=== PATIENT | male | born 1975 | race Caucasian/White ===

== ENCOUNTER 2016-12-31 08:19 | Observation (INO) | payer BC ==
[~2016-12-31] VITALS: Ht 190.5 cm; Wt 116.4 kg
[~2016-12-31 08:19] MED LIST: CYAN100T6 PO; IBUP-1050 PO; MULT-513 PO; PRED10TA PO; TRAM-10 PO
[2016-12-31] MEDS ORDERED: ONDANSETRON INJ 2 MG/ML 2 ML VIAL IV STA (09:18)
[2016-12-31] MEDS ORDERED: MoRPHine SULFATE 4 MG/ML 1 ML CARP\\VIAL IV STA ×2 (09:18→14:42)
[2016-12-31] MEDS ORDERED: DEXAMETHASONE SOD INJ 10 MG/ML VIAL IV STA (09:23)
[2016-12-31 09:44] LABS: BASO % 0.4 %; BASO ABS # 0.02 K/uL (0-0.2); COMPLETE YES; EOS % 3.1 %; HEMATOCRIT 44.6 % (42-52); IG% 0.2 %; LYMPH % 25.9 %; LYMPH ABS # 1.42 K/uL (1.2-3.4); MEAN CELL VOLUME 92.9 fL (80-100); MEAN CORPUSCULAR HEMOGLOBIN 31.9 pg (25-34); MEAN CORPUSCULAR HGB CONC 34.3 g/dl (32-36); MEAN PLATELET VOLUME 9.5 fL (7.4-10.4); MONO % 10.8 %; NEUT % 59.6 %; PLATELET COUNT 228 K/uL (130-400); WHITE BLOOD COUNT 5.48 K/uL (4.8-10.8)
[2016-12-31 10:02] LABS: BUN/CREATININE RATIO 17.6 (10-20); CALCIUM 9.1 mg/dl (8.5-10.1); CREATININE 0.87 mg/dl (0.60-1.40); POTASSIUM 4.1 mmol/L (3.5-5.1)
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
--- NOTE | 2016-12-31 11:26 | DIAGNOSTIC IMAGING REPORT ---
MRI OF THE LUMBAR SPINE WITHOUT IV CONTRAST CLINICAL HISTORY: Chronic low back pain. Leg weakness. COMPARISON STUDY: MRI of the lumbar spine dated 07/27/2016. TECHNIQUE: MRI of the lumbar spine is performed utilizing various T1 and T2-weighted sequences in the axial and sagittal planes. IV contrast was not administered for this examination. FINDINGS: Lumbar spine: Vertebral body height and alignment are maintained throughout the lumbar spine. No destructive bony lesion is seen. The transverse and spinous processes appear intact. There is no evidence of spondylolysis. Intervertebral discs: There is degenerative disc desiccation seen throughout the lumbar spine. Mild loss of height is noted at L4-L5. Spinal cord: The partially imaged spinal cord is normal in morphology and signal intensity. The conus medullaris terminates at the level of L1. The nerve roots of the cauda equina are normal in appearance. L1-L2: Unremarkable. L2-L3: There is a lateral disc bulge eccentric to the left. This may impinge on the exiting left L2 nerve root. The central canal and neural foramina are patent. L3-L4: The central canal and neural foramina are patent. Facet arthropathy is of no consequence. L4-L5: There is minimal posterior disc bulge eccentric to the left. The central canal and neural foramina are patent. There is mild bilateral subarticular stenosis. Mild facet arthropathy is of no consequence. L5-S1: The central canal and neural foramina are patent. Mild facet arthropathy is of no consequence. A small left-sided disc protrusion with annular fissure is again seen. There is minimal left-sided subarticular stenosis. This may abut the transiting left S1 nerve root. Sacrum: Partially visualized sacrum is normal in morphology and signal intensity. Soft tissues: The paraspinous soft tissues are within normal limits. Partially imaged retroperitoneal structures are grossly unremarkable, but incompletely assessed. IMPRESSION: 1. There is no large disc herniation or central canal stenosis. 2. Lumbosacral spondylosis and degenerative disc disease as above. See discussion for detailed level by level analysis. 3. No destructive bony process is identified. Dictated: 12/31/2016 11:15 AM Transcribed: 12/31/2016 11:25 AM Ema Electronically signed by: Frederick Marina M.D. 12/31/2016 11:26 AM Dictated Date/Time: 12/31/2016 11:15 AM
[2016-12-31] MEDS ORDERED: MoRPHine SULFATE 4 MG/ML 1 ML CARP\\VIAL IM STA (14:28)
[2016-12-31] MEDS ORDERED: ALUMINUM/MAGNESIUM/SIMETH (MAALOX MAX) 30 ML UDC PO PRN (15:45)
[2016-12-31] MEDS ORDERED: ACETAMINOPHEN 325 MG TAB PO PRN (15:45)
[2016-12-31] MEDS ORDERED: MoRPHine SULFATE 2 MG/ML CARP IV PRN (15:45)
[2016-12-31] MEDS ORDERED: ONDANSETRON INJ 2 MG/ML 2 ML VIAL IV PRN (15:45)
[2016-12-31] MEDS ORDERED: MAGNESIUM HYDROXIDE SUSP 30 ML UDC PO PRN (15:45)
[2016-12-31] MEDS ORDERED: MoRPHine SULFATE 4 MG/ML 1 ML CARP\\VIAL IV PRN (15:45)
[2016-12-31] MEDS ORDERED: POLYETHYLENE (MIRALAX) 17 GM PACK PO PRN (15:45)
[2016-12-31] MEDS ORDERED: IBUPROFEN 200 MG TAB PO PRN (15:45)
[2016-12-31] MEDS ORDERED: IV FLUIDS COMPLETED PRN ×2 (16:00)
--- NOTE | 2016-12-31 16:20 | History and Physical ---
History & Physical Date & Time of Service: Dec 31, 2016 at 16:05 Chief Complaint: Lower Back Pain Primary Care Physician: Maria Antonia Bird M.D. History of Present Illness Source: patient This is a 41 y/o male with no PMHx who presents to the ED c/o lumbar back pain x 1 week. Pt reports that 1 week ago he developed lumbar back pain that he describes as constant 6/10 "pressure" when laying still. The pain is aggravated with minimal movement and increases to 10/10 "sharp/shooting" pain that radiates into his groin. He denies pain radiating down his legs although when the pain is severe he has difficulty lifting his legs to walk. He denies recent injury but he does workout regularly and thinks he may have "tweaked" something. He has been taking Ibuprofen at home for his pain with minimal relief. He tried doing stretches at home but found it challenging due to the pain. Pt has a history of similar back pain in August 2016. He was seen by spine doctor (Evonne) who recommended stretches with possible need for injections. Pt completed the stretches which gave him complete relief of sxs and he didn't have any more problems until last week. Pt denies any incontinence , bilat LE weakness or saddle anesthesia. Pt denies fever/chills, diaphoresis, chest pain, SOB, abd pain, N/V, bowel or bladder issues, LE edema, calf pain, lightheadedness/dizziness. In the ED, vitals are stable. Labs are unremarkable. Lumbar MRI + multilevel DDD. Pt received Morphine and Decadron in the ED with good relief of pain. Pt will be admitted for further evaluation and treatment. 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) Multi-Drug Resistant Organisms History of MDRO: No Allergies Coded Allergies: Sulfa Antibiotics (Unverified Allergy, Severe, HIVES, 12/31/16) Uncoded Allergies: BACTRIM (Allergy, Unknown, 08/06/04) Home Medications Scheduled Cyanocobalamin (Vitamin B12 100 Mcg), 1 TAB PO DAILY Cyclobenzaprine HCl (Cyclobenzaprine HCl), 10 MG PO TID Multivitamins/Minerals (Mvi With Minerals), 1 TAB PO DAILY Scheduled PRN Ibuprofen (Advil), 800 MG PO TID PRN for Pain Review of Systems Constitutional: No chills, No fatigue, No fever, No sweats, No weakness Eyes: No worsening of vision Respiratory: No cough, No shortness of breath Cardiovascular: No chest pain, No claudication, No edema Abdomen: No constipation, No diarrhea, No nausea, No pain, No vomiting Musculoskeletal: + problem reported (back pain), No calf pain, No swelling Genitourinary - Male: No dysuria Neurologic: No weakness Psychiatric: No depression symptoms Endocrine: No fatigue Hematologic / Lymphatic: No abnormal bleeding/bruising Integumentary: No new/changing skin lesions Physical Exam Vital Signs Date Time Temp Pulse Resp B/P Pulse Ox O2 Delivery O2 Flow Rate FiO2 12/31/16 15:34 76 17 138/70 96 Room Air 12/31/16 14:33 79 18 142/74 95 12/31/16 13:30 70 17 134/73 96 Room Air 12/31/16 11:27 56 18 125/79 94 Room Air 12/31/16 10:10 53 17 124/81 98 Room Air 12/31/16 08:22 36.4 61 18 139/84 97 Room Air General Appearance: WD/WN, no apparent distress, + pertinent finding (Pt is sitting up comdortably in bed ) Head: normocephalic, atraumatic Eyes: normal inspection ENT: hearing grossly normal Neck: supple Respiratory/Chest: chest non-tender, lungs clear, normal breath sounds, no respiratory distress Cardiovascular: regular rate, rhythm, no edema, no murmur Abdomen/GI: normal bowel sounds, non tender, soft Back: normal inspection, + pertinent finding (no tenderness to palpation; + SLR and XSLR) Extremities/Musculoskelatal: normal inspection, no calf tenderness, no pedal edema Neurologic/Psych: alert, normal mood/affect, oriented x 3 Skin: normal color, warm/dry Diagnostics Laboratory Results Results Past 24 Hours Test 12/31/16 09:30 Range/Units White Blood Count 5.48 4.8-10.8 K/uL Red Blood Count 4.80 4.7-6.1 M/uL Hemoglobin 15.3 14.0-18.0 g/dL Hematocrit 44.6 42-52 % Mean Corpuscular Volume 92.9 80-100 fL Mean Corpuscular Hemoglobin 31.9 25-34 pg Mean Corpuscular Hemoglobin Concent 34.3 32-36 g/dl Platelet Count 228 130-400 K/uL Mean Platelet Volume 9.5 7.4-10.4 fL Neutrophils (%) (Auto) 59.6 % Lymphocytes (%) (Auto) 25.9 % Monocytes (%) (Auto) 10.8 % Eosinophils (%) (Auto) 3.1 % Basophils (%) (Auto) 0.4 % Neutrophils # (Auto) 3.27 1.4-6.5 K/uL Lymphocytes # (Auto) 1.42 1.2-3.4 K/uL Monocytes # (Auto) 0.59 0.11-0.59 K/uL Eosinophils # (Auto) 0.17 0-0.5 K/uL Basophils # (Auto) 0.02 0-0.2 K/uL RDW Standard Deviation 44.8 36.4-46.3 fL RDW Coefficient of Variation 13.1 11.5-14.5 % Immature Granulocyte % (Auto) 0.2 % Immature Granulocyte # (Auto) 0.01 0.00-0.02 K/uL Sodium Level 143 136-145 mmol/L Potassium Level 4.1 3.5-5.1 mmol/L Chloride Level 105 98-107 mmol/L Carbon Dioxide Level 32 21-32 mmol/L Anion Gap 6.0 3-11 mmol/L Blood Urea Nitrogen 15 7-18 mg/dl Creatinine 0.87 0.60-1.40 mg/dl Est Creatinine Clear Calc Drug Dose 152.2 ml/min Estimated GFR () 123.4 Estimated GFR (Non- 106.5 BUN/Creatinine Ratio 17.6 10-20 Random Glucose 91 70-99 mg/dl Calcium Level 9.1 8.5-10.1 mg/dl Diagnostic Radiology LUMBAR SPINE MRI IMPRESSION: 1. There is no large disc herniation or central canal stenosis. 2. Lumbosacral spondylosis and degenerative disc disease as above. See discussion for detailed level by level analysis. 3. No destructive bony process is identified. Impression Assessment and Plan LUMBAR BACK PAIN pt presents with worsening lower back pain; h/o similar back pain August 2016 which resolved with conservative treatment -admit observation status to med/surg -MRI IMPRESSION: 1. There is no large disc herniation or central canal stenosis. 2. Lumbosacral spondylosis and degenerative disc disease. See above for detailed level by level analysis. 3. No destructive bony process is identified. -cont morphine PRN pain -PT/OT -consult Dr. Douglass-pending input -monitor DVT PROPHYLAXIS -Low VTE risk -SCDs CODE STATUS -FULL CODE status DISPO -Observation status until further workup is complete. Pt seen in collaboration with Dr. Herman. Please see her addendum for further details. Thanks! ATTENDING NOTE : pt seen and examined, in agreement with above H& P by Gertrude SHEPHERD 41 yo healthy Male ,presented with acute onset of low back pain , localized to left side no recent trauma of fall MRI of lumber spine : -MRI IMPRESSION: 1. There is no large disc herniation or central canal stenosis. 2. Lumbosacral spondylosis and degenerative disc disease. See above for detailed level by level analysis. 3. No destructive bony process is identified. P/E: Gen : no sign of distress HEENT: sclera non icteric , PERRLA/EOMI HT: regular s1/s2 Lungs : CTA Abdomen : soft, non tender ext /musculoskeletal : point tenderness on low back -left side ; left sided + straight leg test neuro; no focal deficit A/P : Low back pain : due to lumber spine DJD no neurological compromise pain control PT/OT Ortho eval requested VTE Prophylaxis VTE Risk Assessment Done? Y/N: Yes Risk Level: Low
[2016-12-31 16:41] VITALS: BP 120/88; PULSE 66; TEMP 36.7; O2SAT 96; Ht 190.5 cm; Wt 116.4 kg
[2016-12-31] MEDS: CYCLOBENZAPRINE HCL 10 MG TAB PO SCH (20:22)
[2016-12-31] MEDS: KETOROLAC TROMETHAMINE 15 MG/ML VIAL IV PRN (22:14)
[2016-12-31 23:14] VITALS: BP 106/66; PULSE 86; TEMP 36.4; O2SAT 96
[2017-01-01] MEDS: KETOROLAC TROMETHAMINE 15 MG/ML VIAL IV PRN (04:57)
[2017-01-01 07:14] VITALS: BP 110/59; PULSE 59; TEMP 36.6; O2SAT 97
[2017-01-01] MEDS ORDERED: PANTOprazole SOD 40 MG TAB PO SCH (09:00)
[2017-01-01] MEDS ORDERED: CYANOCOBALAMIN 100 MCG TAB (VIT B-12) PO SCH (09:00)
[2017-01-01] MEDS ORDERED: DOCUSATE SODIUM 100 MG CAP PO SCH (09:00)
[2017-01-01] MEDS ORDERED: CEROVITE ADV FORMULA TAB PO SCH (09:00)
[2017-01-01] MEDS: CYCLOBENZAPRINE HCL 10 MG TAB PO SCH ×2 (09:20→14:05)
--- NOTE | 2017-01-01 11:00 | ORTHOPEDIC CONSULTATION ---
DATE OF CONSULTATION: 01/01/2017 DATE OF CONSULTATION: 01/01/2017. CHIEF COMPLAINT: Acute left-sided low back pain. HISTORY OF PRESENT ILLNESS: A 41-year-old male with a history of low back pain who reports that he was doing well, functioning his normal capacity at work and exercising when he twisted and felt a pop in his back. He had acute onset of left-sided low back pain. He was concerned he may have had disc herniation and presented to the ED for evaluation. He has no radiculopathy, no leg pain. No numbness, no neurologic complaints. An MRI was obtained that showed some loss of disc hydration, L4-L5 and L5-S1, mild loss of disc height with broad-based bulge at L5-S1 without neural compression. This is essentially unchanged from prior study. Really minimal degenerative findings noted. Due to his pain he was admitted for observation and pain control. He currently reports his pain is moderately improved. He has no neurologic complaints. He is ambulatory in the room and with physical therapy. PAST MEDICAL HISTORY: History orthopedic surgeries, no chronic medical issues. 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 ALLERGIES: HE HAS A SULFA ALLERGY. HOME MEDICATIONS: Vitamins and ibuprofen p.r.n. REVIEW OF SYSTEMS: Negative for fevers, chills, chest pain, numbness or fevers. PHYSICAL EXAMINATION: The patient is comfortable and answers questions appropriately, stands easily and ambulates with an upright posture and normal gait. He has some paraspinal tenderness in the left paraspinal region. He has reproduction of back pain with straight leg raise on the left. No radicular symptoms. Negative straight leg raise on the right. He has intact strength, sensation in lower extremities is symmetric. Normal DTRs. No clonus. He has palpable distal pulses. His MRI is reviewed as above. ASSESSMENT AND PLAN: The patient had acute episode of low back pain. He can be treated with symptomatic management. We will give him a dose of Decadron. From my standpoint, he can be discharged whenever he is comfortable. I recommend outpatient PT. He needs no further followup with spine surgery, also as needed basis.
--- NOTE | 2017-01-01 13:47 | Progress Note ---
Subjective Date of Service: Jan 01, 2017. Subjective Pt evaluation today including: conversation w/ patient, physical exam, lab review, review of studies, review of inpatient medication list Saw/examined the patient in room 382 Back pain is controlled with medications Ambulating; ROM improved Problem List Medical Problems: (1) Acute exacerbation of chronic low back pain Status: Acute (2) Bulging discs Status: Acute (3) Lumbar disc herniation with radiculopathy Status: Acute Review of Systems Constitutional: No chills, No fever Respiratory: No cough, No shortness of breath, No sputum Cardiac: No chest pain Abdomen: No diarrhea, No nausea, No pain, No vomiting Musculoskeletal: + joint pain (low back pain) Heme: No abnormal bleeding/bruising Medications Current Inpatient Medications Medications (Trade) Dose Ordered Sig/Jo Route Start Time Stop Time Status Last Admin Dose Admin Acetaminophen (Tylenol Tab) 650 mg Q4H PRN PO 12/31/16 15:45 01/30/17 15:44 Al Hydrox/Mg Hydrox/Simethicone (Maalox Max Susp) 15 ml Q4H PRN PO 12/31/16 15:45 01/30/17 15:44 Magnesium Hydroxide (Milk Of Magnesia Susp) 30 ml Q6H PRN PO 12/31/16 15:45 01/30/17 15:44 Polyethylene (Miralax Powder Packet) 17 gm DAILY PRN PO 12/31/16 15:45 01/30/17 15:44 Ondansetron HCl (Zofran Inj) 4 mg Q6H PRN IV 12/31/16 15:45 01/30/17 15:44 01/01/17 04:57 4 MG Cyclobenzaprine HCl (Flexeril Tab) 10 mg TID PO 12/31/16 21:00 01/30/17 20:59 01/01/17 09:20 10 MG Ibuprofen (Advil Tab) 800 mg TID PRN PO 12/31/16 15:45 01/30/17 15:44 01/01/17 10:29 800 MG Multivitamins/ Minerals (Multivitamin W/ Minerals Tab) 1 tab DAILY PO 01/01/17 09:00 01/31/17 08:59 01/01/17 09:20 1 TAB Cyanocobalamin (Vitamin B-12 Tab) 100 mcg DAILY PO 01/01/17 09:00 01/31/17 08:59 01/01/17 09:20 100 MCG Ketorolac Tromethamine (Toradol Inj) 15 mg Q6H PRN IV 12/31/16 15:45 01/05/17 15:44 01/01/17 04:57 15 MG Pantoprazole Sodium (Protonix Tab) 40 mg QAM PO 01/01/17 09:00 01/31/17 08:59 01/01/17 10:28 40 MG Morphine Sulfate (MoRPHine SULFATE INJ) 2 mg Q4 PRN IV 12/31/16 15:45 01/14/17 15:44 Morphine Sulfate (MoRPHine SULFATE INJ) 4 mg Q4 PRN IV 12/31/16 15:45 01/14/17 15:44 Docusate Sodium (coLACE CAP) 100 mg DAILY PO 01/01/17 09:00 01/31/17 08:59 01/01/17 09:20 100 MG Miscellaneous 1 ea 1 ea PRN PRN N/A 12/31/16 16:00 12/31/17 15:59 Dexamethasone Sodium Phosphate/ Syringe (Decadron Inj/ Syringe) 2 ml @ 1 mls/min Q8H IV 01/01/17 18:00 01/31/17 17:59 Objective Vital Signs Date Time Temp Pulse Resp B/P Pulse Ox O2 Delivery O2 Flow Rate FiO2 01/01/17 08:34 Room Air 01/01/17 07:14 36.6 59 14 110/59 97 Room Air 12/31/16 23:20 Room Air 12/31/16 23:14 36.4 86 20 106/66 96 Room Air 12/31/16 16:41 36.7 66 20 120/88 96 Room Air 12/31/16 16:23 78 15 132/67 96 12/31/16 15:34 76 17 138/70 96 Room Air 12/31/16 14:33 79 18 142/74 95 Physical Exam General Appearance: no apparent distress Respiratory/Chest: lungs clear, normal breath sounds, no respiratory distress, no accessory muscle use Cardiovascular: regular rate, rhythm, no edema, no murmur Abdomen: normal bowel sounds, non tender, soft Extremities: normal inspection, no pedal edema Assessment and Plan This is a 41 year old male who presented with low back pain Lumbar Back Pain Worsening low back pain MRI performed; showed a lumbosacral spondylosis and degenerative disc disease NSAIDs + IV decadron given PT/OT patient is feeling better will discharge with NSAIDs and outpatient f/u with PCP, may need outpatient physical therapy DVT ppx ambulation FULL CODE d/c home today
[2017-01-01] MEDS ORDERED: FLX10 PO (13:49)
--- NOTE | 2017-01-01 13:52 | Discharge Instructions ---
Discharge Instructions Admission Reason for Admission: Back Pain Discharge Discharge Diagnosis / Problem: Lumbosacral Spondylosis Discharge Goals Goal(s): Decrease discomfort, Improve function, Diagnostic testing, Therapeutic intervention Activity Recommendations Activity Limitations: per Instructions/Follow-up section . Instructions / Follow-Up Instructions / Follow-Up Please follow-up with Dr. Hines (covering for Dr. Bird) on January 08 @ 3:00PM * May need outpatient physical therapy if pain persists * Use ibuprofen for pain * You will be prescribed Flexeril for muscle spasms - use this only as needed - do not drive if you are using this medication * No need to follow-up with orthopedic surgery Current Hospital Diet Patient's current hospital diet: Regular Diet Discharge Diet Recommended Diet: Regular Diet Pending Studies Studies pending at discharge: no Medical Emergencies . Who to Call and When: Medical Emergencies: If at any time you feel your situation is an emergency, please call 911 immediately. . Non-Emergent Contact Non-Emergency issues call your: Primary Care Provider . . "Provider Documentation" section prepared by Cintia Parker. VTE Core Measure Inpt VTE Proph given/why not?: Treatment not indicated
--- NOTE | 2017-01-01 13:53 | Discharge Summary ---
Discharge Summary Admission Date: Dec 31, 2016 at 13:52 Discharge Date: Jan 01, 2017 Discharge Disposition: Home Principal Diagnosis: Lumbosacral Spondylosis Medication Reconciliation New Medications: Cyclobenzaprine HCl (Cyclobenzaprine HCl) 10 Mg Tab 10 MG PO TID for 10 Days, #30 TAB Continued Medications: Cyanocobalamin (Vitamin B12 100 Mcg) Unknown Strength Tab 1 TAB PO DAILY, TAB Ibuprofen (Advil) 200 Mg Tab 800 MG PO TID PRN for Pain, TAB Multivitamins/Minerals (Mvi With Minerals) Tab 1 TAB PO DAILY, TAB Admission Information HPI (per Admitting provider): This is a 41 y/o male with no PMHx who presents to the ED c/o lumbar back pain x 1 week. Pt reports that 1 week ago he developed lumbar back pain that he describes as constant 6/10 "pressure" when laying still. The pain is aggravated with minimal movement and increases to 10/10 "sharp/shooting" pain that radiates into his groin. He denies pain radiating down his legs although when the pain is severe he has difficulty lifting his legs to walk. He denies recent injury but he does workout regularly and thinks he may have "tweaked" something. He has been taking Ibuprofen at home for his pain with minimal relief. He tried doing stretches at home but found it challenging due to the pain. Pt has a history of similar back pain in August 2016. He was seen by spine doctor (Evonne) who recommended stretches with possible need for injections. Pt completed the stretches which gave him complete relief of sxs and he didn't have any more problems until last week. Pt denies any incontinence , bilat LE weakness or saddle anesthesia. Pt denies fever/chills, diaphoresis, chest pain, SOB, abd pain, N/V, bowel or bladder issues, LE edema, calf pain, lightheadedness/dizziness. In the ED, vitals are stable. Labs are unremarkable. Lumbar MRI + multilevel DDD. Pt received Morphine and Decadron in the ED with good relief of pain. Pt will be admitted for further evaluation and treatment. Physical Exam (per Admitting): General Appearance: WD/WN, no apparent distress, + pertinent finding (Pt is sitting up comdortably in bed ) Head: normocephalic, atraumatic Eyes: normal inspection ENT: hearing grossly normal Neck: supple Respiratory/Chest: chest non-tender, lungs clear, normal breath sounds, no respiratory distress Cardiovascular: regular rate, rhythm, no edema, no murmur Abdomen/GI: normal bowel sounds, non tender, soft Back: normal inspection, + pertinent finding (no tenderness to palpation; + SLR and XSLR) Extremities/Musculoskelatal: normal inspection, no calf tenderness, no pedal edema Neurologic/Psych: alert, normal mood/affect, oriented x 3 Skin: normal color, warm/dry Hospital Course This is a 41 year old male who presented with low back pain Lumbar Back Pain Worsening low back pain MRI performed; showed a lumbosacral spondylosis and degenerative disc disease NSAIDs + IV decadron given PT/OT patient is feeling better will discharge with NSAIDs and outpatient f/u with PCP, may need outpatient physical therapy DVT ppx ambulation FULL CODE d/c home today Total time spent on discharge = 20 minutes This includes examination of the patient, discharge planning, medication reconciliation, and communication with other providers. Discharge Instructions Please follow-up with Dr. Hines (covering for Dr. Bird) on January 08 @ 3:00PM * May need outpatient physical therapy if pain persists * Use ibuprofen for pain * You will be prescribed Flexeril for muscle spasms - use this only as needed - do not drive if you are using this medication * No need to follow-up with orthopedic surgery
[2017-01-01 13:57] VITALS: BP 110/59; PULSE 59; TEMP 36.6; O2SAT 97
[2017-01-01] MEDS ORDERED: DEXAMETHASONE INJ 8 MG in SYRINGE 0 ML IV SCH (18:00)
[2017-06-13] MEDS ORDERED: GABA-113 PO (09:41)
[2017-06-19] MEDS ORDERED: POTA10CA28 PO (14:06)
[2017-06-19] MEDS ORDERED: GLUC1CAP35 PO (14:06)
[2017-06-19] MEDS ORDERED: MULT-106 PO (14:06)
== END 2017-01-01 14:32 | disposition home or self-care (01) ==
LOC: ENRESERVTM → ENRESERVDT → C.EDB 08:20 → C.MSN 13:52
PROVIDERS: ADMIT Hospitalist; ATTEND Family Medicine
DX: M47.817 Spondylosis without myelopathy or radiculopathy, lumbosacral region (principal); Z87.891 Personal history of nicotine dependence; Z88.2 Allergy status to sulfonamides

== ENCOUNTER 2017-06-11 09:17 | Observation (INO) | payer BC ==
[~2017-06-11] VITALS: Ht 193 cm; Wt 113.6 kg
[~2017-06-11 09:17] MED LIST changes: +FLX10 PO; -PRED10TA PO; -TRAM-10 PO
[2017-06-11] MEDS ORDERED: CYCL10TA6 PO (09:45)
[2017-06-11] MEDS ORDERED: HYDROmorphone INJ 1 MG/ML SYR IV STA ×2 (10:25→12:43)
[2017-06-11] MEDS ORDERED: SODIUM CHLORIDE 0.9% 1000ML 1,000 ML IV STA (10:26)
[2017-06-11] MEDS ORDERED: ONDANSETRON INJ 2 MG/ML 2 ML VIAL IV STA (10:26)
[2017-06-11] MEDS ORDERED: KETOROLAC TROMETHAMINE 30 MG/ML VIAL IV STA (10:49)
[2017-06-11 11:20] LABS: BASO % 0.3 %; BASO ABS # 0.02 K/uL (0-0.2); COMPLETE YES; EOS % 1.7 %; HEMATOCRIT 44.1 % (42-52); IG% 0.2 %; LYMPH % 25.6 %; MEAN CELL VOLUME 91.9 fL (80-100); MEAN CORPUSCULAR HEMOGLOBIN 31.3 pg (25-34); MEAN PLATELET VOLUME 9.4 fL (7.4-10.4); MONO % 8.9 %; NEUT % 63.3 %; PLATELET COUNT 215 K/uL (130-400); WHITE BLOOD COUNT 6.64 K/uL (4.8-10.8)
[2017-06-11 11:39] LABS: BUN/CREATININE RATIO 14.8 (10-20); CALCIUM 9.4 mg/dl (8.5-10.1); CREATININE 0.84 mg/dl (0.60-1.40)
--- NOTE | 2017-06-11 11:45 | EMERGENCY ROOM VISIT NOTE ---
History First contact with patient: 10:02 Chief Complaint: BACK PAIN Stated Complaint: BULGING DISC IN BACK-DOCTOR TERRYFERDARRIAN-VIRIDIANA History of Present Illness The patient is a 41 year old male who presents to the Emergency Room with complaints of low back pain. The patient states he has had back pain since December. He had an MRI at that time which showed a bulging disc. He states that he was doing much better until Father's Day weekend. He had been lifting bags of mulch. He states that his pain has progressively worsened since then. He states that last night his pain was unbearable. He rates his discomfort an 8 /10. He states he is having difficulty urinating but denies loss of bowel or bladder control. He reports pain and tingling down the left leg that radiates to his ankle. He denies any abdominal pain, nausea or vomiting. The patient was seen at Dr. Lau's Office this morning. He was referred to the emergency department due to his significant pain. Review of Systems A 10 system review of systems was completed with positives and pertinent negatives listed in the HPI. Past Medical/Surgical History Medical Problems: (1) Back pain (2) disc herniation (3) Lumbar disc herniation Surgical Problems: (1) H/O vasectomy (2) S/P ACL repair (3) S/P left knee arthroscopy (4) S/P right knee arthroscopy Social History Smoking Status: Never Smoker Alcohol Use: occasionally Drug Use: none Marital Status: in relationship Occupation Status: employed Current/Historical Medications Scheduled Cyanocobalamin (Vitamin B12 100 Mcg), 1 TAB PO DAILY Cyclobenzaprine Hcl (Flexeril), 10 MG PO TID Multivitamins/Minerals (Mvi With Minerals), 1 TAB PO DAILY Scheduled PRN Ibuprofen (Advil), 800 MG PO TID PRN for Pain Allergies Coded Allergies: Sulfa Antibiotics (Unverified Allergy, Severe, HIVES, 06/11/17) Sulfamethoxazole w/Trimethoprim (Unverified Allergy, Severe, HIVES, ) Physical Exam Vital Signs Date Time Temp Pulse Resp B/P (MAP) Pulse Ox O2 Delivery O2 Flow Rate FiO2 06/11/17 14:38 61 16 125/88 98 Room Air 06/11/17 12:22 52 16 131/93 92 Room Air 06/11/17 10:36 56 20 135/87 96 Room Air 06/11/17 09:20 36.6 103 20 141/76 96 Room Air Physical Exam VITALS: Vitals are noted on the nurse's note and reviewed by myself. Vital signs stable. GENERAL: This is a 41-year-old male, who appears to be in pain, nondiaphoretic, well-developed well-nourished. SKIN: The skin was without rashes, erythema, edema, or bruising. There is no tenting of the skin. Capillary reflex less than 2 seconds. HEAD: Normocephalic atraumatic. EARS: The external ears are normal in appearance. EYES: Pupils equal round and reactive to light and accommodation. Conjunctivae without injection, sclerae without icterus. Extraocular movements intact. NOSE: Patent, turbinates without inflammation or discharge. MOUTH: Mucous membranes moist. Tonsils are not enlarged. Pharynx without erythema or exudate. Uvula midline. Airway patent. Tongue does not deviate. NECK: Supple without nuchal rigidity. No lymphadenopathy. No thyromegaly. Cervical spine is nontender. No JVD. HEART: Regular rate and rhythm without murmurs gallops or rubs. LUNGS: Clear to auscultation bilaterally without wheezes, rales or rhonchi. No retractions or accessory muscle use. ABDOMEN: Positive bowel sounds x 4. Soft, nontender, without masses or organomegaly. MUSCULOSKELETAL: No muscle atrophy, erythema, or edema noted. Full range of motion in all extremities but significant back pain with movement of the legs. No tenderness to palpation. Positive straight leg raise. Strength is 4/5 which may be secondary to pain. NEURO: Patient was alert and oriented to person place and time. Normal sensation to light and sharp touch. Deep tendon reflexes 2+ throughout. No focal neurological deficits. Medical Decision & Procedures ER Provider Diagnostic Interpretation: MRI OF THE LUMBAR SPINE WITHOUT IV CONTRAST CLINICAL HISTORY: Chronic low back pain. Left lower extremity radiculopathy. COMPARISON STUDY: MRI of the lumbar spine dated 12/31/2016. TECHNIQUE: MRI of the lumbar spine is performed utilizing various T1 and T2-weighted sequences in the axial and sagittal planes. IV contrast was not administered for this examination. FINDINGS: Lumbar spine: Vertebral body height and alignment are maintained throughout the lumbar spine. No destructive bony lesion is seen. The transverse and spinous processes appear intact. There is no evidence of spondylolysis. Tiny anterior osteophytes are seen in the lower lumbar region. Intervertebral discs: There is degenerative disc desiccation seen throughout the lumbar spine. Mild loss of height is noted at L4-L5 and L5-S1. Spinal cord: The partially imaged spinal cord is normal in morphology and signal intensity. The conus medullaris terminates at the level of L1. The nerve roots of the cauda equina are normal in appearance. L1-L2: Unremarkable. L2-L3: There is a lateral disc bulge eccentric to the left. This may impinge on the exiting left L2 nerve root. The central canal and neural foramina are patent. L3-L4: The central canal and neural foramina are patent. Facet arthropathy is of no consequence. L4-L5: There is minimal posterior disc bulge eccentric to the left. The central canal and neural foramina are patent. There is mild bilateral subarticular stenosis. Mild facet arthropathy is of no consequence. The disc bulge may abut the exiting right L4 nerve root. L5-S1: There is a left lateral disc herniation which is increased from 12/31/2016. This causes left-sided subarticular stenosis, and impinges on the transiting left-sided sacral nerve roots. This is best seen on axial image #27. The central canal is patent. Mild facet arthropathy is of no consequence. Sacrum: Partially visualized sacrum is normal in morphology and signal intensity. Soft tissues: The paraspinous soft tissues are within normal limits. Partially imaged retroperitoneal structures are grossly unremarkable, but incompletely assessed. The bladder is markedly distended. IMPRESSION: 1. There is a lateral disc herniation at L5-S1 eccentric to the left. This causes subarticular stenosis and impinges on the transiting left-sided sacral nerve roots. This has increased from 12/31/2016. 2. Lumbosacral spondylosis and degenerative disc disease at additional levels as above. See discussion for detailed level by level analysis. 3. No destructive bony process is identified. 4. The bladder is distended. Laboratory Results 06/11/17 10:48 Red Blood Count 4.80, Mean Corpuscular Volume 91.9, Mean Corpuscular Hemoglobin 31.3, Mean Corpuscular Hemoglobin Concent 34.0, Mean Platelet Volume 9.4, Neutrophils (%) (Auto) 63.3, Lymphocytes (%) (Auto) 25.6, Monocytes (%) (Auto) 8.9, Eosinophils (%) (Auto) 1.7, Basophils (%) (Auto) 0.3, Neutrophils # (Auto) 4.21, Lymphocytes # (Auto) 1.70, Monocytes # (Auto) 0.59, Eosinophils # (Auto) 0.11, Basophils # (Auto) 0.02 06/11/17 10:48 Test 06/11/17 10:48 06/11/17 15:05 White Blood Count 6.64 K/uL (4.8-10.8) Red Blood Count 4.80 M/uL (4.7-6.1) Hemoglobin 15.0 g/dL (14.0-18.0) Hematocrit 44.1 % (42-52) Mean Corpuscular Volume 91.9 fL (80-100) Mean Corpuscular Hemoglobin 31.3 pg (25-34) Mean Corpuscular Hemoglobin Concent 34.0 g/dl (32-36) Platelet Count 215 K/uL (130-400) Mean Platelet Volume 9.4 fL (7.4-10.4) Neutrophils (%) (Auto) 63.3 % Lymphocytes (%) (Auto) 25.6 % Monocytes (%) (Auto) 8.9 % Eosinophils (%) (Auto) 1.7 % Basophils (%) (Auto) 0.3 % Neutrophils # (Auto) 4.21 K/uL (1.4-6.5) Lymphocytes # (Auto) 1.70 K/uL (1.2-3.4) Monocytes # (Auto) 0.59 K/uL (0.11-0.59) Eosinophils # (Auto) 0.11 K/uL (0-0.5) Basophils # (Auto) 0.02 K/uL (0-0.2) RDW Standard Deviation 44.3 fL (36.4-46.3) RDW Coefficient of Variation 13.1 % (11.5-14.5) Immature Granulocyte % (Auto) 0.2 % Immature Granulocyte # (Auto) 0.01 K/uL (0.00-0.02) Anion Gap 6.0 mmol/L (3-11) Est Creatinine Clear Calc Drug Dose 155.8 ml/min Estimated GFR () 125.2 Estimated GFR (Non- 108.0 BUN/Creatinine Ratio 14.8 (10-20) Calcium Level 9.4 mg/dl (8.5-10.1) Total Bilirubin 0.3 mg/dl (0.2-1) Aspartate Amino Transf (AST/SGOT) 16 U/L (15-37) Alanine Aminotransferase (ALT/SGPT) 24 U/L (12-78) Alkaline Phosphatase 55 U/L (45-117) Total Protein 7.3 gm/dl (6.4-8.2) Albumin 3.6 gm/dl (3.4-5.0) Globulin 3.7 gm/dl (2.5-4.0) Albumin/Globulin Ratio 1.0 (0.9-2) Urine Color YELLOW Urine Appearance CLEAR (CLEAR) Urine pH 6.5 (4.5-7.5) Urine Specific [place] 1.016 (1.000-1.030) Urine Protein NEG (NEG) Urine Glucose (UA) NEG (NEG) Urine Ketones NEG (NEG) Urine Occult Blood NEG (NEG) Urine Nitrite NEG (NEG) Urine Bilirubin NEG (NEG) Urine Urobilinogen NEG (NEG) Urine Leukocyte Esterase NEG (NEG) Medications Administered Medications (Trade) Dose Ordered Sig/Jo Route Start Time Stop Time Status Last Admin Dose Admin Hydromorphone HCl (Dilaudid Inj) 1 mg NOW STAT IV 06/11/17 10:25 06/11/17 10:26 DC 06/11/17 10:33 1 MG Ondansetron HCl (Zofran Inj) 4 mg NOW STAT IV 06/11/17 10:26 06/11/17 10:27 DC 06/11/17 10:33 4 MG Sodium Chloride 1,000 ml @ 999 mls/hr Q1H1M STAT IV 06/11/17 10:26 06/11/17 11:26 DC 06/11/17 10:33 999 MLS/HR Ketorolac Tromethamine (Toradol Inj) 30 mg NOW STAT IV 06/11/17 10:49 06/11/17 10:51 DC 06/11/17 11:16 30 MG Hydromorphone HCl (Dilaudid Inj) 1 mg NOW STAT IV 06/11/17 12:43 06/11/17 12:44 DC 06/11/17 13:12 1 MG ED Course The patient was seen and examined. Previous visits were reviewed. The patient does not have a fever or leukocytosis. He does not have any significant electrolyte abnormality. Urinalysis is negative. MRI was obtained as above and reveals L5-S1 disc herniation The patient was initially given 1 mg IV Dilaudid with good improvement in his pain His pain began to come back and he was given additional 1 mg IV Dilaudid The patient presented to the emergency department in severe discomfort. The patient was initially laying in a prone position and was unable to roll onto his back because of the severe pain. The patient has had similar exacerbations twice in the past. He states each time is worse. He appears to have a disc herniation. He does not have any signs or symptoms of neurologic deficit. The patient is still having discomfort. I discussed the case with Dr. Lau. I had a lengthy discussion with the patient regarding his options of discharge home and follow-up in the office or possibly admission for further evaluation, management and possible injection tomorrow. The patient did not feel that he could go home. Dr. Lau was contacted again evaluate the patient and admit him. The case was discussed with Dr. petersen who agrees with the assessment and treatment plan Medical Decision DIFFERENTIAL DIAGNOSIS: Lumbar strain, degenerative disc disease, spondylolisthesis, herniated disc, spinal stenosis, osteoporosis, fracture, cauda equina syndrome, neoplasm, infection, inflammatory arthritis, among others. Impression Primary Impression: Lumbar disc herniation Additional Impression: Intractable low back pain Departure Information Dispostion Admitted as an inpatient Referrals Maria Antonia Bird M.D. (PCP) Patient Instructions My [facility] Problem Qualifiers
--- NOTE | 2017-06-11 14:15 | DIAGNOSTIC IMAGING REPORT ---
MRI OF THE LUMBAR SPINE WITHOUT IV CONTRAST CLINICAL HISTORY: Chronic low back pain. Left lower extremity radiculopathy. COMPARISON STUDY: MRI of the lumbar spine dated 12/31/2016. TECHNIQUE: MRI of the lumbar spine is performed utilizing various T1 and T2-weighted sequences in the axial and sagittal planes. IV contrast was not administered for this examination. FINDINGS: Lumbar spine: Vertebral body height and alignment are maintained throughout the lumbar spine. No destructive bony lesion is seen. The transverse and spinous processes appear intact. There is no evidence of spondylolysis. Tiny anterior osteophytes are seen in the lower lumbar region. Intervertebral discs: There is degenerative disc desiccation seen throughout the lumbar spine. Mild loss of height is noted at L4-L5 and L5-S1. Spinal cord: The partially imaged spinal cord is normal in morphology and signal intensity. The conus medullaris terminates at the level of L1. The nerve roots of the cauda equina are normal in appearance. L1-L2: Unremarkable. L2-L3: There is a lateral disc bulge eccentric to the left. This may impinge on the exiting left L2 nerve root. The central canal and neural foramina are patent. L3-L4: The central canal and neural foramina are patent. Facet arthropathy is of no consequence. L4-L5: There is minimal posterior disc bulge eccentric to the left. The central canal and neural foramina are patent. There is mild bilateral subarticular stenosis. Mild facet arthropathy is of no consequence. The disc bulge may abut the exiting right L4 nerve root. L5-S1: There is a left lateral disc herniation which is increased from 12/31/2016. This causes left-sided subarticular stenosis, and impinges on the transiting left-sided sacral nerve roots. This is best seen on axial image #27. The central canal is patent. Mild facet arthropathy is of no consequence. Sacrum: Partially visualized sacrum is normal in morphology and signal intensity. Soft tissues: The paraspinous soft tissues are within normal limits. Partially imaged retroperitoneal structures are grossly unremarkable, but incompletely assessed. The bladder is markedly distended. IMPRESSION: 1. There is a lateral disc herniation at L5-S1 eccentric to the left. This causes subarticular stenosis and impinges on the transiting left-sided sacral nerve roots. This has increased from 12/31/2016. 2. Lumbosacral spondylosis and degenerative disc disease at additional levels as above. See discussion for detailed level by level analysis. 3. No destructive bony process is identified. 4. The bladder is distended. Electronically signed by: Frederick Marina M.D. 06/11/2017 2:13 PM Dictated Date/Time: 06/11/2017 2:08 PM
[2017-06-11] MEDS ORDERED: ONDANSETRON INJ 2 MG/ML 2 ML VIAL IV PRN (15:00)
[2017-06-11] MEDS ORDERED: HYDROCODONE/ACETAMOPHEN 5/325MG TAB PO PRN (15:00)
[2017-06-11] MEDS ORDERED: ACETAMINOPHEN 325 MG TAB PO PRN (15:00)
[2017-06-11] MEDS ORDERED: LORAZEPAM 1 MG TAB PO PRN (15:00)
[2017-06-11 15:23] LABS: URINE APPEARANCE CLEAR (CLEAR); URINE BILIRUBIN NEG (NEG); URINE COLOR YELLOW; URINE NITRITE NEG (NEG); URINE PH 6.5 (4.5-7.5); URINE SPECIFIC GRAVITY 1.016 (1.000-1.030); UROBILINOGEN NEG (NEG); ZZUR CULT IF INDIC CLEAN CATCH NO
[2017-06-11 15:25] LABS: MANUAL MICROSCOPIC REQUIRED? NO; REVIEW REQ? NO
[2017-06-11 16:10] VITALS: BP 128/87; PULSE 49; TEMP 36.3; O2SAT 99; Ht 193 cm; Wt 113.6 kg
[2017-06-11] MEDS ORDERED: IV FLUIDS COMPLETED PRN (16:15)
--- NOTE | 2017-06-11 16:47 | History and Physical ---
History & Physical Date Jun 11, 2017. Chief Complaint back and left lower extremity pain History of Present Illness The patient is a 41 year old male with complaints of back and lower extremity pain Past Medical/Surgical History Medical Problems: (1) Back pain (2) disc herniation (3) Lumbar disc herniation Surgical Problems: (1) H/O vasectomy (2) S/P ACL repair (3) S/P left knee arthroscopy (4) S/P right knee arthroscopy Additional History Hepatic Disease: No Endocrine Disorder: No Kidney Disease: No Hypertension: No Heart Disease: No Bleeding Tendencies: No Infectious Diseases: No Allergies Coded Allergies: Sulfa Antibiotics (Unverified Allergy, Severe, HIVES, 06/11/17) Sulfamethoxazole w/Trimethoprim (Unverified Allergy, Severe, HIVES, ) Home Medications Scheduled Cyanocobalamin (Vitamin B12 100 Mcg), 1 TAB PO DAILY Cyclobenzaprine Hcl (Flexeril), 10 MG PO TID Multivitamins/Minerals (Mvi With Minerals), 1 TAB PO DAILY Scheduled PRN Ibuprofen (Advil), 800 MG PO TID PRN for Pain Physical Examination Skin: warm/dry, no rash Eyes: normal inspection, EOMI, sclerae normal ENT: normal ENT inspection Head: normocephalic, atraumatic Neck: supple, no adenopathy Respiratory/Chest: lungs clear, no respiratory distress Cardiovascular: regular rate, rhythm, no murmur Abdomen / GI: normal bowel sounds, non tender Back: + pertinent finding (back pain and spasm with loss of motion) Diagnosis disc herniation L5-S1 left ASA Classification: ASA Class II Plan of Treatment Admit to me ( Judi). iv and po meds ordered. Pain management consulted with hanna for injection L5-S1. Surgery in the future if not controlled by pain management
[2017-06-11] MEDS: OXYCODONE/ACETAMINOPHEN 5-325 TAB PO PRN ×2 (16:58→22:54)
[2017-06-11] MEDS: LACTATED RINGER'S 1000ML 1,000 ML IV SCH (16:59)
[2017-06-11] MEDS: DEXAMETHASONE INJ 8 MG in SYRINGE 0 ML IV SCH (18:32)
[2017-06-11] MEDS: KETOROLAC TROMETHAMINE 30 MG/ML VIAL IV PRN (20:49)
[2017-06-11] MEDS: DOCUSATE SODIUM 100 MG CAP PO SCH (20:49)
[2017-06-11] MEDS: GABAPENTIN 300 MG CAP PO SCH (20:49)
[2017-06-11 22:09] VITALS: BP 135/83; PULSE 59; TEMP 36.4; O2SAT 95
[2017-06-11 23:28] VITALS: BP 129/84; PULSE 62; TEMP 36.5; O2SAT 95
[2017-06-12] MEDS: DEXAMETHASONE INJ 8 MG in SYRINGE 0 ML IV SCH ×3 (00:22→12:08)
[2017-06-12] MEDS: LACTATED RINGER'S 1000ML 1,000 ML IV SCH (04:46)
[2017-06-12] MEDS: OXYCODONE/ACETAMINOPHEN 5-325 TAB PO PRN ×2 (04:55→12:08)
[2017-06-12] MEDS: KETOROLAC TROMETHAMINE 30 MG/ML VIAL IV PRN ×2 (06:41→13:02)
[2017-06-12 07:00] VITALS: BP 127/79; PULSE 74; TEMP 36.5; O2SAT 94
[2017-06-12 07:39] VITALS: BP 120/78; PULSE 82; TEMP 37.4; O2SAT 96
--- NOTE | 2017-06-12 08:07 | Progress Note ---
Subjective Date of Service: Jun 12, 2017. Subjective Pt evaluation today including: conversation w/ patient, chart review, conversation w/ change consultant Voiding: no voiding problems Patient improved this morning and will use the bathroom pain markedly decreased Problem List Medical Problems: (1) Acute exacerbation of chronic low back pain Status: Acute (2) Bulging discs Status: Acute (3) Intractable low back pain Status: Acute (4) Lumbar disc herniation with radiculopathy Status: Acute Review of Systems Musculoskeletal: + see HPI Neurologic: + see HPI All Other Systems: Reviewed and Negative (patient was admitted to my service on June 11. We use assortment of medications on him he is improving dramatically and stable.Pain management team has seen and evaluated the patient will try to get him set up for epidural steroid injection. The hospital or at their facility tomorrow 13 of June. I anticipate his discharge home later today) Objective Vital Signs Date Time Temp Pulse Resp B/P (MAP) Pulse Ox O2 Delivery O2 Flow Rate FiO2 06/12/17 07:39 37.4 82 18 120/78 (92) 96 Room Air 06/12/17 07:00 36.5 74 15 127/79 (95) 94 Room Air 06/11/17 23:30 Room Air 06/11/17 23:28 36.5 62 15 129/84 (99) 95 Room Air 06/11/17 22:09 36.4 59 18 135/83 (100) 95 Room Air 06/11/17 16:12 55 110/76 99 06/11/17 16:10 Room Air 06/11/17 16:10 Room Air 06/11/17 16:10 36.3 49 16 128/87 (101) 99 Room Air 06/11/17 14:38 61 16 125/88 98 Room Air 06/11/17 12:22 52 16 131/93 92 Room Air 06/11/17 10:36 56 20 135/87 96 Room Air 06/11/17 09:20 36.6 103 20 141/76 96 Room Air Laboratory Results Last 24 Hours Test 06/11/17 10:48 06/11/17 15:05 White Blood Count 6.64 K/uL Red Blood Count 4.80 M/uL Hemoglobin 15.0 g/dL Hematocrit 44.1 % Mean Corpuscular Volume 91.9 fL Mean Corpuscular Hemoglobin 31.3 pg Mean Corpuscular Hemoglobin Concent 34.0 g/dl Platelet Count 215 K/uL Mean Platelet Volume 9.4 fL Neutrophils (%) (Auto) 63.3 % Lymphocytes (%) (Auto) 25.6 % Monocytes (%) (Auto) 8.9 % Eosinophils (%) (Auto) 1.7 % Basophils (%) (Auto) 0.3 % Neutrophils # (Auto) 4.21 K/uL Lymphocytes # (Auto) 1.70 K/uL Monocytes # (Auto) 0.59 K/uL Eosinophils # (Auto) 0.11 K/uL Basophils # (Auto) 0.02 K/uL RDW Standard Deviation 44.3 fL RDW Coefficient of Variation 13.1 % Immature Granulocyte % (Auto) 0.2 % Immature Granulocyte # (Auto) 0.01 K/uL Sodium Level 140 mmol/L Potassium Level 4.0 mmol/L Chloride Level 106 mmol/L Carbon Dioxide Level 28 mmol/L Anion Gap 6.0 mmol/L Blood Urea Nitrogen 12 mg/dl Creatinine 0.84 mg/dl Est Creatinine Clear Calc Drug Dose 155.8 ml/min Estimated GFR () 125.2 Estimated GFR (Non- 108.0 BUN/Creatinine Ratio 14.8 Random Glucose 95 mg/dl Calcium Level 9.4 mg/dl Total Bilirubin 0.3 mg/dl Aspartate Amino Transf (AST/SGOT) 16 U/L Alanine Aminotransferase (ALT/SGPT) 24 U/L Alkaline Phosphatase 55 U/L Total Protein 7.3 gm/dl Albumin 3.6 gm/dl Globulin 3.7 gm/dl Albumin/Globulin Ratio 1.0 Urine Color YELLOW Urine Appearance CLEAR Urine pH 6.5 Urine Specific [place] 1.016 Urine Protein NEG Urine Glucose (UA) NEG Urine Ketones NEG Urine Occult Blood NEG Urine Nitrite NEG Urine Bilirubin NEG Urine Urobilinogen NEG Urine Leukocyte Esterase NEG
[2017-06-12] MEDS: DOCUSATE SODIUM 100 MG CAP PO SCH (08:48)
[2017-06-12] MEDS: GABAPENTIN 300 MG CAP PO SCH (08:48)
--- NOTE | 2017-06-12 09:03 | Pain Management Consultation ---
Pain Management Consultation Date of Consultation Jun 12, 2017. Reason for Consultation Left lower extremity intractable radicular pain Pain Location 1 - 2 - History Mr. Jacobs is a 41-year-old white male who is admitted due to intractable left lower extremity radicular pain. Patient reported onset of his current symptoms approximately 3-4 weeks ago without known injury. The patient has had some episodic low back and left lower extremity radicular pain over the past 3-4 months which has resolved through conservative care. Patient reported a significant increase in the frequency and severity of pain over the past 3-4 days when his pain became intractable described as sharp, shooting, burning and stabbing in characteristic traveling in an L5 versus S1 distribution to the level of the ankle with weakness. Patient reports minimal axial low back pain at this time. He denies numbness or tingling sensations. Patient denies right lower extremity radicular pain. He has no bowel or bladder incontinence. He denies saddle anesthesia. Patient is reporting slight improvement this morning and has been out of bed to the bathroom. Surgical consultation occurred per Dr. Lau who suggested GINGER prior to surgical intervention. Patient has no further constitutional complaints at this time. Past Medical/Surgical History (1) disc herniation (2) Intractable low back pain (3) Lumbar disc herniation (4) Back pain (5) H/O vasectomy (6) S/P left knee arthroscopy (7) S/P right knee arthroscopy (8) S/P ACL repair Social / Work History Smoking Status: Never smoker Smokeless Tobacco Use: No Alcohol Use: occasionally Drug Use: none Marital Status: in relationship Housing Status: lives with family Occupation: employed Allergies Coded Allergies: Sulfa Antibiotics (Unverified Allergy, Severe, HIVES, 06/11/17) Sulfamethoxazole w/Trimethoprim (Unverified Allergy, Severe, HIVES, ) Medications Current Inpatient Medications Medications (Trade) Dose Ordered Sig/Jo Route Start Time Stop Time Status Last Admin Dose Admin Lactated Ringer's 1,000 ml @ 75 mls/hr [id number] IV 06/11/17 15:00 07/11/17 14:59 06/12/17 04:46 75 MLS/HR Acetaminophen (Tylenol Tab) 650 mg Q6H PRN PO 06/11/17 15:00 07/11/17 14:59 Docusate Sodium (coLACE CAP) 100 mg BID PO 06/11/17 21:00 07/11/17 20:59 06/11/17 20:49 100 MG Ondansetron HCl (Zofran Inj) 4 mg Q6H PRN IV 06/11/17 15:00 07/11/17 14:59 Lorazepam (Ativan Tab) 1 mg Q6H PRN PO 06/11/17 15:00 07/11/17 14:59 Oxycodone/ Acetaminophen (Percocet 5-325mg Tab) Moderate to Severe ann... Q4H PRN PO 06/11/17 15:00 06/25/17 14:59 06/12/17 04:55 2 TAB Acetaminophen/ Hydrocodone Bitart ([place] 5/325 Tab) Moderate to Severe Ann... Q4H PRN PO 06/11/17 15:00 06/25/17 14:59 Dexamethasone Sodium Phosphate 8 mg/Syringe 2 ml @ 1 mls/min Q6 IV 06/11/17 18:00 07/11/17 17:59 06/12/17 06:31 1 MLS/MIN Ketorolac Tromethamine (Toradol Inj) 30 mg Q6H PRN IV 06/11/17 15:15 06/16/17 15:14 06/12/17 06:41 30 MG Gabapentin (Neurontin Cap) 300 mg TID PO 06/11/17 21:00 07/11/17 20:59 06/11/17 20:49 300 MG Miscellaneous (Iv Fluids Completed) 1 ea PRN PRN N/A 06/11/17 16:15 06/11/18 16:14 06/12/17 04:46 1 EA Review of Systems Patient denies complaints related to cardiac, pulmonary, GI, , endocrine, neurologic, hepatic, renal, ENT, dermatological musculoskeletal other than those described above in the history of present illness. Physical Exam Height & Weight: Height 6 feet, 4.00 inches. Weight 113.640 (Kilograms) 250 (Pounds) Last Vital Signs Documentation Date Time Temp Pulse Resp B/P (MAP) Pulse Ox O2 Delivery O2 Flow Rate FiO2 06/12/17 07:39 37.4 82 18 120/78 (92) 96 Room Air Exam: Gen.: Mr. Jacobs is lying flat upon entering the room in no acute distress. Speech and thought process appropriate. Mood and affect appropriate. Cognition intact. Back/spine: Patient was able to log roll towards his left side with moderate discomfort. Loss of lumbar lordosis. Nontender over the midline, facet joint or SI joints. Moderate paravertebral spasm appreciated on the left which is nontender to palpation. Lower extremity: SLR positive on the left at approximately 10 aggravated with dorsiflexion. SLR negative on the right. Strength testing 4/5 with EHL and dorsiflexion on the left when compared to the right. Hip flexion 4/5 on the left, 5/5 on the right. Hip extension 5/5, plantar flexion 5/5 and equal bilaterally. Sensation intact without notable deficits. Neurologic: Cranial nerves grossly intact. Babinski downgoing bilaterally. Ambulatory function not witnessed. Laboratory Laboratory Results (Last CBC): 06/11/17 10:48 Red Blood Count 4.80, Mean Corpuscular Volume 91.9, Mean Corpuscular Hemoglobin 31.3, Mean Corpuscular Hemoglobin Concent 34.0, Mean Platelet Volume 9.4, Neutrophils (%) (Auto) 63.3, Lymphocytes (%) (Auto) 25.6, Monocytes (%) (Auto) 8.9, Eosinophils (%) (Auto) 1.7, Basophils (%) (Auto) 0.3, Neutrophils # (Auto) 4.21, Lymphocytes # (Auto) 1.70, Monocytes # (Auto) 0.59, Eosinophils # (Auto) 0.11, Basophils # (Auto) 0.02 Imaging MRI: non enhanced MRI Findings MRI OF THE LUMBAR SPINE WITHOUT IV CONTRAST CLINICAL HISTORY: Chronic low back pain. Left lower extremity radiculopathy. COMPARISON STUDY: MRI of the lumbar spine dated 12/31/2016. TECHNIQUE: MRI of the lumbar spine is performed utilizing various T1 and T2-weighted sequences in the axial and sagittal planes. IV contrast was not administered for this examination. FINDINGS: Lumbar spine: Vertebral body height and alignment are maintained throughout the lumbar spine. No destructive bony lesion is seen. The transverse and spinous processes appear intact. There is no evidence of spondylolysis. Tiny anterior osteophytes are seen in the lower lumbar region. Intervertebral discs: There is degenerative disc desiccation seen throughout the lumbar spine. Mild loss of height is noted at L4-L5 and L5-S1. Spinal cord: The partially imaged spinal cord is normal in morphology and signal intensity. The conus medullaris terminates at the level of L1. The nerve roots of the cauda equina are normal in appearance. L1-L2: Unremarkable. L2-L3: There is a lateral disc bulge eccentric to the left. This may impinge on the exiting left L2 nerve root. The central canal and neural foramina are patent. L3-L4: The central canal and neural foramina are patent. Facet arthropathy is of no consequence. L4-L5: There is minimal posterior disc bulge eccentric to the left. The central canal and neural foramina are patent. There is mild bilateral subarticular stenosis. Mild facet arthropathy is of no consequence. The disc bulge may abut the exiting right L4 nerve root. L5-S1: There is a left lateral disc herniation which is increased from 12/31/2016. This causes left-sided subarticular stenosis, and impinges on the transiting left-sided sacral nerve roots. This is best seen on axial image #27. The central canal is patent. Mild facet arthropathy is of no consequence. Sacrum: Partially visualized sacrum is normal in morphology and signal intensity. Soft tissues: The paraspinous soft tissues are within normal limits. Partially imaged retroperitoneal structures are grossly unremarkable, but incompletely assessed. The bladder is markedly distended. IMPRESSION: 1. There is a lateral disc herniation at L5-S1 eccentric to the left. This causes subarticular stenosis and impinges on the transiting left-sided sacral nerve roots. This has increased from 12/31/2016. 2. Lumbosacral spondylosis and degenerative disc disease at additional levels as above. See discussion for detailed level by level analysis. 3. No destructive bony process is identified. 4. The bladder is distended. Electronically signed by: Frederick Marina M.D. 06/11/2017 2:13 PM Dictated Date/Time: 06/11/2017 2:08 PM The status of this report is Signed. Draft = Not yet reviewed or approved by Radiologist. Signed = Reviewed and approved by Radiologist. Assessment 1. Lumbar radiculopathy-left lower extremity 2. Left lateral disc herniation at L5-S1 Recommendations 1. Etiology and treatment options discussed with the patient. Will attempt to coordinate GINGER in the outpatient setting. Will inform Dr. Lau of plan for discharge planning at that time. 2. Maintain current medications without change 3. Further treatment recommendations will be made pending response GINGER Thank you for the consultation on Mr. Jacobs
[2017-06-12 09:05] VITALS: O2SAT 96
--- NOTE | 2017-06-12 11:27 | Discharge Instructions ---
Discharge Instructions Date of Service Jun 12, 2017. Admission Reason for Admission: Bulging Disc In Back-Doctor Reffered-Judi Discharge Discharge Diagnosis / Problem: herniated disc L5-S1 Discharge Goals Goal(s): Improve function Activity Recommendations Activity Limitations: as noted below Lifting Limitations: gradually increase as tolerated Exercise/Sports Limitations: until after follow-up appointment May Resume Sexual Activity: after follow-up appointment Driving or Machine Use: resume 1 day after discharge home, rest recover . Instructions / Follow-Up Instructions / Follow-Up Follow up with Dr. Lau 7 to 10days Current Hospital Diet Patient's current hospital diet: Regular Diet Discharge Diet Recommended Diet: Regular Diet Pending Studies Studies pending at discharge: no Medical Emergencies . Who to Call and When: Medical Emergencies: If at any time you feel your situation is an emergency, please call 911 immediately. . Non-Emergent Contact Non-Emergency issues call your: Surgeon Call Non-Emergent contact if: you have any medication questions . "Provider Documentation" section prepared by Pollo Lau. . VTE Core Measure Inpt VTE Proph given/why not?: Treatment not indicated
[2017-06-12] MEDS ORDERED: HYDR-4383 PO (12:39)
[2017-06-12] MEDS ORDERED: GABA-113 PO (12:39)
[2017-06-12] MEDS ORDERED: METH4PAK PO (12:39)
[2017-06-12 12:47] VITALS: BP 120/78; PULSE 82; TEMP 37.4; O2SAT 96
[2017-06-13] MEDS ORDERED: GABA-113 PO (09:41)
[2017-06-19] MEDS ORDERED: GLUC1CAP35 PO (14:06)
[2017-06-19] MEDS ORDERED: POTA10CA28 PO (14:06)
[2017-06-19] MEDS ORDERED: MULT-106 PO (14:06)
--- NOTE | 2017-06-28 08:13 | DISCHARGE SUMMARY ---
Mr. Jacobs was admitted to my service with a disc herniation lumbar spine, intractable pain and inability to ambulate. We got him quieted down with pain medication, IV steroids, IV anti-inflammatories and got him stabilized and stable for discharge home 06/12/2017. He was discharged home in improved stable condition. We will see him back in the office in 1 week. Prescriptions offered and appointment offered.
== END 2017-06-12 13:14 | disposition home or self-care (01) ==
LOC: C.EDB 09:19 → C.MSN 15:09 → ENRESERV 15:46
PROVIDERS: ADMIT Orthopaedic Surgery Orthopaedic Surgery of the Spine; ATTEND Orthopaedic Surgery Orthopaedic Surgery of the Spine
DX: M51.16 Intervertebral disc disorders with radiculopathy, lumbar region (principal)

== ENCOUNTER 2017-06-20 08:41 | Observation (INO) | payer BC ==
[2017-06-19 14:09] VITALS: BMI 31.0
[2017-06-20] VITALS (8 sets, daily range): BP systolic 118–148; BP diastolic 75–94; PULSE 60–82; TEMP 36.5–36.8; O2SAT 94–100; Ht 190.5 cm; Wt 113.6 kg
[~2017-06-20] VITALS: Ht 190.5 cm; Wt 113.6 kg
[~2017-06-20 08:41] MED LIST changes: +ATROPINE SULFATE 0.1 MG/ML 5ML SYR IV PRN; +CEFAZOLIN 2000 MG/60 ML D5W 60 ML IV SCH; +EpHEDrine SULFATE INJ 50 MG/ML AMP IV PRN; +FENTANYL CITRATE INJ 50 MCG/1 ML 2 ML VIAL IV PRN; +FENTANYL CITRATE INJ 50 MCG/1 ML 2 ML VIAL ONE; -FLX10 PO; +GABA-113 PO; +GLUC1CAP35 PO; +HYDR-4383 PO; +HYDROmorphone INJ 1 MG/ML SYR IV PRN; +HYDROmorphone INJ 2 MG/ML SYR/VIAL ONE; -IBUP-1050 PO; +LACTATED RINGER'S 1000ML 1,000 ML IV SCH; +MIDAZOLAM HCL 1 MG/ML 2ML VIAL ONE; +MULT-106 PO; -MULT-513 PO; +NSS 1000ML IV SCH; +ONDANSETRON INJ 2 MG/ML 2 ML VIAL IV PRN; +POTA10CA28 PO
[2017-06-20] MEDS ORDERED: ONDANSETRON INJ 2 MG/ML 2 ML VIAL ONE (09:04)
[2017-06-20] MEDS ORDERED: PROPOFOL IV EMULSION 10 MG/ML 20 ML VIAL IV ONE (09:04)
[2017-06-20] MEDS ORDERED: NEOSTIGMINE METHYLSULFATE 5 MG/5 ML SYR ONE (09:04)
[2017-06-20] MEDS ORDERED: LIDOCAINE HCL 2% 2 ML VIAL (20MG/ML) ONE (09:04)
[2017-06-20] MEDS ORDERED: DEXAMETHASONE SOD INJ 4 MG/ML VIAL ONE (09:04)
[2017-06-20] MEDS ORDERED: GLYCOPYRROLATE INJ 0.2 MG/ML VIAL ONE (09:04)
[2017-06-20] MEDS ORDERED: ROCURONIUM BROMIDE 10 MG/ML 5 ML VIAL ONE (09:04)
[2017-06-20] MEDS ORDERED: GELATIN SPONGE SZ 100 ONE (10:14)
[2017-06-20] MEDS ORDERED: THROMBIN FOR SOLN 20000 UNIT KIT ONE (10:14)
[2017-06-20] MEDS ORDERED: BACITRACIN 50000 UNIT VIAL ONE ×2 (10:15→11:03)
[2017-06-20] MEDS ORDERED: BUPIVACAINE/EPINEPHRINE 0.5% MPF 1:200,000 10 ML VIAL ONE ×3 (10:15→10:34)
[2017-06-20] MEDS ORDERED: VANCOMYCIN HCL 1000MG/20ML VIAL ONE (10:15)
--- NOTE | 2017-06-20 10:18 | History and Physical ---
History & Physical Date Jun 20, 2017. Chief Complaint F lower extremity pain History of Present Illness The patient is a 41 year old male with complaints of back and left lower extremity pain paresthesias numbness tingling weakness Past Medical/Surgical History Medical Problems: (1) Back pain (2) disc herniation (3) Lumbar disc herniation Surgical Problems: (1) H/O vasectomy (2) S/P ACL repair (3) S/P left knee arthroscopy (4) S/P right knee arthroscopy Additional History Hepatic Disease: No Endocrine Disorder: No Kidney Disease: No Hypertension: No Heart Disease: No Bleeding Tendencies: No Infectious Diseases: No Allergies Coded Allergies: Sulfa Antibiotics (Unverified Allergy, Severe, HIVES, 06/20/17) Sulfamethoxazole w/Trimethoprim (Unverified Allergy, Severe, HIVES, ) Home Medications Scheduled Cyanocobalamin (Vitamin B12 100 Mcg), 1 TAB PO QDL Gabapentin (Neurontin), Unknown Dose PO TID Spufbfhiceo-Pbcictfxagw-Eps C- (Glucosamine Chondroitin), 1 CAP PO QDL Multiple Vitamins W/ Minerals (One Daily Mens), 1 TAB PO QDL Potassium Chloride (Micro-K Ext Rel), Unknown Dose PO QDL Scheduled PRN Hydrocodone/Acetaminophen ([place] 10/325 Tab), 1 TAB PO Q6 PRN for Pain Physical Examination Skin: warm/dry Eyes: normal inspection ENT: normal ENT inspection Head: normocephalic Neck: supple Respiratory/Chest: lungs clear Cardiovascular: regular rate, rhythm Abdomen / GI: normal bowel sounds Back: + pertinent finding (pain stiffness loss of range of motion flexion extension rotation and side bending) Extremities: + pertinent finding (significant pain with straight leg raising on the left lumbar. Contralateral straight leg raising numbness and tingling a decreased Achilles reflex) Genitourinary - Male: normal male genitalia Neurologic/Psych: no motor/sensory deficits Diagnosis Disc herniation lumbar spine L5-S1 2 left-hand side ASA Classification: ASA Class II Plan of Treatment Plan Partial discectomy L5-S1
[2017-06-20] MEDS ORDERED: HYDROmorphone INJ 2 MG/ML SYR/VIAL ONE (10:55)
[2017-06-20] MEDS ORDERED: KETAMINE HCL INJ 50 MG/ML 10 ML VIAL ONE (11:01)
[2017-06-20] MEDS ORDERED: LARYING-O-JET KIT (LTA) ONE ×2 (11:11)
[2017-06-20] MEDS ORDERED: SODIUM CHLORIDE 0.9% 1000ML 1,000 ML IV SCH (12:01)
--- NOTE | 2017-06-20 12:12 | [facility] Operative Report ---
Operative Report Operative Date Jun 20, 2017. Pre-Operative Diagnosis Disc herniation lumbar spine L5-S1 2 left-hand side Post-Operative Diagnosis Same as preop Procedure(s) Performed L5-S1 Partial Discectomy Surgeon Dr. Pollo Lau [employer] Account Executive Surgeon(s) Daryl Chou PA-C Findings Disc herniation lumbar spine L5-S1 left-sided Specimens none, Per Surgeon Complication(s) No complications Disposition Recovery Room / PACU (recovery room stable) Indications Indications: A 41 male with incapacitating back and lower extremity difficulty this tingling. Achilles weakness on reflex on the left and light loss of sensation with profound straight leg raising pain Description of Procedure Description of procedure Patient was taken to the operating room a general intubated anesthetic provided to the patient. His prone scrubbed first with Betadine prep with ChloraPrep draped sterile. A skin incision after marking him with a 3-1/2 inch spinal needle. Skin incision fascial incision using a deep self-retaining retractor. The small upgoing laminotomy of 5 downgoing foraminotomies at S1 partial ligamentum flavum removed we retracted the nerve root and medial direction easily visualize the disc herniation. Engage with the disc with a 15 scalpel blade various size pituitary rongeurs to evacuate the disc area. Was free of obstruction. Then irrigated thoroughly placed a fat graft over the nerve root close fascia fascia with 1 Vicryl suture. This was closed over vancomycin powder and Hemovac drain. Then close the subcuticular layer with 2-0 Vicryl suture and 3-0 nylon on the skin. Dressings applied patient returned supine extubated and delivered to PACU improved stable condition. Thank you I attest to the content of the Intraoperative Record and any orders documented therein. Any exceptions are noted below.
[2017-06-20] MEDS ORDERED: MAGNESIUM HYDROXIDE SUSP 30 ML UDC PO PRN (12:15)
[2017-06-20] MEDS ORDERED: HYDROmorphone INJ 1 MG/ML SYR IV PRN (12:15)
[2017-06-20] MEDS ORDERED: METOCLOPRAMIDE HCL INJ 5 MG/ML 2 ML VIAL IV PRN (12:15)
[2017-06-20] MEDS ORDERED: HYDROmorphone INJ 2 MG/ML SYR/VIAL IV PRN (12:15)
[2017-06-20] MEDS ORDERED: ONDANSETRON INJ 2 MG/ML 2 ML VIAL IV PRN (12:15)
[2017-06-20] MEDS ORDERED: ACETAMINOPHEN 325 MG TAB PO PRN (12:15)
[2017-06-20] MEDS ORDERED: PROMETHAZINE HCL INJ 12.5 MG in SODIUM CHLORIDE 0.9% 50ML 50 ML IV PRN (12:15)
[2017-06-20] MEDS ORDERED: OXYCODONE/ACETAMINOPHEN 5-325 TAB PO PRN ×2 (12:15)
[2017-06-20] MEDS ORDERED: LORAZEPAM INJ 1 MG in SYRINGE 0 ML IV PRN (12:15)
[2017-06-20] MEDS ORDERED: LORAZEPAM 1 MG TAB PO PRN (12:15)
[2017-06-20] MEDS ORDERED: IV FLUIDS COMPLETED PRN (12:45)
--- NOTE | 2017-06-20 12:59 | Anesthesiology Progress Note ---
Anesthesia Post Op Note Date & Time Jun 20, 2017 at 12:59 Vital Signs Pain Intensity: 0 Vital Signs Past 12 Hours Date Time Temp Pulse Resp B/P (MAP) Pulse Ox O2 Delivery O2 Flow Rate FiO2 06/20/17 12:45 66 24 143/99 98 Nasal Cannula 4 06/20/17 12:35 66 24 155/93 94 Nasal Cannula 4 06/20/17 12:25 66 24 152/103 94 4 06/20/17 12:15 66 24 165/118 98 Oxymask 10 06/20/17 12:08 37.2 66 24 140/96 99 Oxymask 10 06/20/17 09:09 36.6 60 22 132/81 (98) 97 Room Air Notes Mental Status: alert / awake / arousable, participated in evaluation Pt Amnestic to Procedure: Yes Nausea / Vomiting: adequately controlled Pain: adequately controlled Airway Patency, RR, SpO2: stable & adequate BP & HR: stable & adequate Hydration State: stable & adequate Anesthetic Complications: no major complications apparent
--- NOTE | 2017-06-20 14:27 | DIAGNOSTIC IMAGING REPORT ---
SPINE ONE VIEW, ANY LEVEL CLINICAL HISTORY: 41 years-old Male presenting with L5-S1 DISCECTOMY. TECHNIQUE: 1 fluoroscopic spot image including a lateral view of the lumbar spine was obtained intraoperatively. COMPARISON: 06/13/2017. FINDINGS/IMPRESSION: Surgical device introduced into the L5-S1 interspinous space. Overall anatomic alignment is preserved. Please see surgical report for further details. Fluoroscopy dosage (mGy): Not available. Fluoroscopy time: 5 seconds. Number of fluoroscopic spot images: 1. Electronically signed by: Miguel Awad M.D. 06/20/2017 2:25 PM Dictated Date/Time: 06/20/2017 2:24 PM
[2017-06-20] MEDS: DEXAMETHASONE INJ 10 MG in SYRINGE 0 ML IV SCH ×2 (14:49→21:56)
[2017-06-20] MEDS: KETOROLAC TROMETHAMINE 30 MG/ML VIAL IV SCH ×2 (16:00→21:56)
[2017-06-20] MEDS ORDERED: NURSING VERBAL MED ORDER ONE ×2 (18:00→22:30)
[2017-06-20] MEDS: CEFAZOLIN IV 2,000 MG in DEXTROSE 5% 50ML 50 ML IV SCH (18:03)
[2017-06-20] MEDS ORDERED: ARTIFICIAL TEARS OP SOLN OP PRN ×2 (18:15)
[2017-06-21] MEDS: CEFAZOLIN IV 2,000 MG in DEXTROSE 5% 50ML 50 ML IV SCH ×2 (02:27→10:02)
[2017-06-21 03:13] VITALS: BP 122/73; PULSE 76; TEMP 36.7; O2SAT 98
[2017-06-21] MEDS: KETOROLAC TROMETHAMINE 30 MG/ML VIAL IV SCH ×2 (03:34→09:54)
[2017-06-21] MEDS: DEXAMETHASONE INJ 10 MG in SYRINGE 0 ML IV SCH (05:56)
[2017-06-21] MEDS ORDERED: BISACODYL 10 MG SUPP PR PRN (06:00)
[2017-06-21] MEDS ORDERED: BISACODYL 5 MG TABEC PO PRN (06:00)
[2017-06-21 07:46] VITALS: BP 144/88; PULSE 81; TEMP 36.6; O2SAT 93
--- NOTE | 2017-06-21 07:55 | Discharge Instructions ---
Discharge Instructions Date of Service Jun 21, 2017. Admission Reason for Admission: Lumbar Disc Herniation L5-S1 Discharge Discharge Diagnosis / Problem: same Discharge Goals Goal(s): Decrease discomfort, Improve function Activity Recommendations Activity Limitations: as noted below Lifting Limitations: until after follow-up appointment Exercise/Sports Limitations: until after follow-up appointment May Resume Sexual Activity: after follow-up appointment Shower/Bathe: keep incision dry be careful. . Instructions / Follow-Up Instructions / Follow-Up MEDICATIONS: Please take your prescriptions as instructed at your pre-op appointment. SPECIAL CARE: The following information is intended to answer some of the common questions and concerns regarding your surgery. Each patient is an individual and receives individual counselling throughout the course of treatment, from diagnosis to surgery all the way through recovery. What follows is not an exhaustive list, but should be a useful guide to some of the common questions and concerns patients have regarding their surgeries. These are not provided to keep you from calling us; rather, they give you something accurate and concrete to reference as you recover from your procedure. If you need us, we are available to you. As always, if you are not sure about something, call us at [phone]. MEDICAL EMERGENCIES: For these conditions, call 911 or go to your local hospital-based Emergency Department - not [facility] or equivalent. * Paralysis * Severe chest pain or difficulty breathing * Swelling or redness of either leg Spine procedures can be rather complex and though complications are rare, they do occur. In such cases, effective advice regarding emergency situations cannot always be addressed over the telephone. You may be referred to the emergency department for more effective management of your problem. Activity Limitations: It is important to give your body time to heal, so please limit your activities : * In general, don't do anything that moves your spine too much. You should avoid contact sports, twisting or heavy lifting while you recover. * 5-10 pounds is all you should attempt to lift. * You should not plan on driving for approximately 3 weeks and you should avoid traveling more than 30-45 minutes at a time. Longer trips should be broken down with walking breaks spaced appropriately. * Physical therapy is not usually required. * Walking and good posture practices will help you recover and regain your function. * Avoid straining or sudden changes in position. * In general, the goal is to take it easy and recover. Don't cause any new problems. Just relax. Showers: * Do not take a bath, use a Jacuzzi or hot tub or otherwise submerge your incision. * It is usually safe to take a shower 4-5 days after your surgery. * Your incision does not require any special creams or ointments. * Simply clean it with soap and water, dry and re-dress with a clean bandage afterwards. Incision: * Keep incision clean, dry and protected until your first follow-up appointment. * Some amount of drainage and redness is normal. Any drainage should be fairly clear and not have a foul odor. * If you feel anything is wrong or you have excessive drainage, please call us. * Your stitches and raymond will be removed 10-14 days after your surgery. At the time of your first post-op visit. * Neck surgeries are typically closed with a suture underneath the skin. The steri-strips over the incision should be maintained until we see you in the office. Bracing: * You may be provided with a back or neck brace to encourage good posture and prevent injury. It will remind you not to do too much as you heal and will alert others to the fact that you have had a surgery. * Back braces may be removed for showers and when you are resting at home. They must be worn when you are walking around for any period of time or for travel. * For neck surgery, you will likely be provided with two cervical collars. The soft collar ([place] or foam rubber) is worn most commonly throughout the day and while sleeping. The plastic collar (provided at the hospital) is for showering/bathing. * Except while eating, collars should remain in place. More specifically, bracing is provided for a purpose and should be worn. * Please obtain your brace or collars prior to your operation and bring them to the hospital with you on the day of surgery. * You should also bring your collars to your post-op appointment with Dr. Lau. You should always take good care of your body and practice healthy habits, especially following surgery. You should: * Follow your doctor's treatment plan * Sit and stand properly with good posture (ears over shoulders, shoulders over hips) Don't slouch * Learn to lift correctly * Exercise regularly (low-impact aerobic exercise is especially good, but check with your doctor first) * Generally, be up and walking for 5-10 minutes at a time at least 3-4 times per day from the day you get home * Increasing walking to tolerance until you can walk for 20-30 minutes at a time * Attain and maintain a healthy body weight * Eat healthy foods ( a well-balanced, low-fat diet rich in fruits and vegetables) and get enough calcium * Avoid excessive use of alcohol When to call our office - If you notice any of the following: * Increased pain not relieve by pain medicine * Fevers greater then 100 degrees F, chills or flu symptoms * Increased redness around incision * Drainage from the incision that is not clear * Any foul smelling drainage * Swelling or fluid collection beneath the skin Miscellaneous: * In the hospital, you may be given a walker or cane for support while walking. These are temporary needs and are intended to prevent injuries due to falls. You may discontinue them when you feel strong and steady enough on your feet. * Sleep in a comfortable position. We find that many patients find a lounge chair or recliner with several pillows to be beneficial in the early post-operative period. * The support stockings should be used for 7-10 days and may be discontinued when you are back to walking more and conducting usual household activities. No problem is insignificant. We are here to help you and get you well. Contact us at [phone]. Definitions: Foraminotomy: If part of the disc or a bone spur (osteophyte) is pressing on a nerve as it leaves the vertebra (through an exit called the foramen), a foraminotomy may be done. Otomy means "to make an opening." A foraminotomy is making the opening of the foramen larger, so the nerve can exit without being compressed. Laminotomy: Similar to the foraminotomy, a laminotomy makes a larger opening, this time in your bony plate protecting your spinal canal and spinal cord (the lamina). The lamina may be pressing on your nerve, so the surgeon may make more room for the nerves using a laminotomy. Laminectomy: Sometimes, a laminotomy is not sufficient. The surgeon may need to remove all or part of the lamina. This procedure is called a laminectomy. This can often be done at many levels without any harmful effects. Current Hospital Diet Patient's current hospital diet: Regular Diet Discharge Diet Recommended Diet: Regular Diet Procedures Procedures Performed: L5-S1 Partial Discectomy Pending Studies Studies pending at discharge: no Medical Emergencies . Who to Call and When: Medical Emergencies: If at any time you feel your situation is an emergency, please call 911 immediately. . Non-Emergent Contact Non-Emergency issues call your: Primary Care Provider . "Provider Documentation" section prepared by Pollo Lau. . VTE Core Measure Inpt VTE Proph given/why not?: Treatment not indicated
--- NOTE | 2017-06-21 07:58 | Discharge Summary ---
Orthopedic Discharge Summary Admission Date/Reason Jun 20, 2017 at 12:06 Lumbar Disc Herniation L5-S1. Discharge Date/Disposition Jun 21, 2017 Home Diagnosis Principal Diagnosis: Disc herniation lumbar spine Procedure(s) Performed Lumbar laminectomy and discectomy partial L5-S1 Medication Reconciliation [place] for pain Admission Physical Exam As per Admitting History & Physical. Hospital Course Patient had a good surgery on June 20 was out of bed to chair that evening stable on the and discharged home. He had no chest pain shortness of breath confusion. He had no neurological deficit. We discharged home safely on June 21 thank you Discharge Instructions Please refer to the electronic Patient Visit Report (Discharge Instructions) for additional information.
--- NOTE | 2017-06-21 08:14 | Anesthesiology Progress Note ---
Anesthesia Post Op Note Date & Time Jun 21, 2017 at 08:14 Vital Signs Pain Intensity: 0.0 Vital Signs Past 12 Hours Date Time Temp Pulse Resp B/P (MAP) Pulse Ox O2 Delivery O2 Flow Rate FiO2 06/21/17 07:46 36.6 81 18 144/88 (106) 93 Room Air 06/21/17 03:13 36.7 76 18 122/73 (89) 98 Room Air 06/21/17 00:20 Room Air 06/20/17 23:13 36.6 82 18 118/75 (89) 96 Room Air 06/20/17 20:30 36.7 75 19 119/75 (90) 94 Room Air Notes Mental Status: alert / awake / arousable, participated in evaluation Pt Amnestic to Procedure: Yes Nausea / Vomiting: adequately controlled Pain: adequately controlled Airway Patency, RR, SpO2: stable & adequate BP & HR: stable & adequate Hydration State: stable & adequate Anesthetic Complications: no major complications apparent
[2017-06-21] MEDS ORDERED: POLYETHYLENE (MIRALAX) 17 GM PACK PO SCH (09:00)
[2017-06-21 09:44] VITALS: BP 138/85; PULSE 83; O2SAT 96
[2017-06-21 10:07] VITALS: BP 144/88; PULSE 81; TEMP 36.6; O2SAT 93
[2017-06-21] MEDS ORDERED: CEROVITE ADV FORMULA TAB PO SCH (12:30)
[2017-06-21] MEDS ORDERED: CYANOCOBALAMIN 100 MCG TAB (VIT B-12) PO SCH (12:30)
== END 2017-06-21 10:49 | disposition home or self-care (01) ==
LOC: C.ACU 08:41 → C.3E 12:06 → ENRESERV 12:56
PROVIDERS: ADMIT Orthopaedic Surgery Orthopaedic Surgery of the Spine; ATTEND Orthopaedic Surgery Orthopaedic Surgery of the Spine
DX: M51.17 Intervertebral disc disorders with radiculopathy, lumbosacral region (principal)

== ENCOUNTER → 2017-12-30 | Outpatient (CLI) | payer BC ==
[~2017-12-30] MED LIST changes: -ATROPINE SULFATE 0.1 MG/ML 5ML SYR IV PRN; -CEFAZOLIN 2000 MG/60 ML D5W 60 ML IV SCH; -EpHEDrine SULFATE INJ 50 MG/ML AMP IV PRN; -FENTANYL CITRATE INJ 50 MCG/1 ML 2 ML VIAL IV PRN; -FENTANYL CITRATE INJ 50 MCG/1 ML 2 ML VIAL ONE; +GADAVIST IV PRN; -HYDR-4383 PO; -HYDROmorphone INJ 1 MG/ML SYR IV PRN; -HYDROmorphone INJ 2 MG/ML SYR/VIAL ONE; -LACTATED RINGER'S 1000ML 1,000 ML IV SCH; -MIDAZOLAM HCL 1 MG/ML 2ML VIAL ONE; -NSS 1000ML IV SCH; -ONDANSETRON INJ 2 MG/ML 2 ML VIAL IV PRN
--- NOTE | 2017-12-30 19:16 | DIAGNOSTIC IMAGING REPORT ---
MRI LUMBAR SPINE COMBINATION CLINICAL HISTORY: Low back pain with left leg radiculopathy. History of spinal surgery in June 2017 TECHNIQUE: Sagittal and axial T1, T2 and STIR images were obtained. Images were acquired before and after the administration of 11 cc of intravenous Gadavist COMPARISON STUDY: MRI the lumbar spine dated 06/11/2017 OBSERVATIONS: The vertebral bodies and posterior elements appear intact. There is no abnormal bony signal present to suggest a marrow replacement process. L1-2: No disc protrusions or extrusions. No evidence of spinal canal or neural foraminal compromise. L2-3: There is a small left lateral disc bulge. There is no significant spinal or foraminal stenosis L3-4: There is a mild circumferential disc bulge. There is slight flattening of the anterior thecal sac. There is no significant foraminal stenosis L4-5: There is a small broad-based central disc protrusion. There is slight flattening of the thecal sac. There is no significant foraminal stenosis. L5-S1: There are postsurgical changes of a left hemilaminectomy. There is an 8mm mass in the region of the left lateral recess with surrounding rim enhancement. This likely represents a residual/recurrent left-sided disc herniation. This likely impinges on the left S1 nerve root. The left S1 nerve root is difficult to visualize separate from this structure. There is enhancement within the posterior soft tissues consistent with postsurgical change. The conus medullaris and cauda equina appear normal. IMPRESSION: 8 mm lesion within the left lateral recess at the L5-S1 level. This demonstrates no significant internal enhancement but does demonstrate rim enhancement. It is difficult to visualize the left S1 nerve root separate from this structure. This likely represents a recurrent/residual disc herniation with probable impingement on the left S1 nerve root. There is surrounding epidural enhancement. Electronically signed by: Hussein Meza M.D. 12/30/2017 7:14 PM Dictated Date/Time: 12/30/2017 7:09 PM
== END | disposition home or self-care (01) ==
LOC: C.MRI 17:53
PROVIDERS: ATTEND Orthopaedic Surgery Orthopaedic Surgery of the Spine
DX: M51.26 Other intervertebral disc displacement, lumbar region (principal)